=== PATIENT | female | born 1950 | race African-American/Black ===

== ENCOUNTER 2017-06-26 06:58 | Inpatient (IN) ==
[2017-06-26] MEDS ORDERED: SODIUM CHLORIDE 0.9% 3,350 ML IV ONE (07:40)
[2017-06-26 08:48] LABS: Albumin 2.9 G/DL (3.4-5.0); Bilirubin,Total 0.8 MG/DL (0.2-1.0); Calcium 9.3 MG/DL (8.5-10.1); Total Protein 7.1 G/DL (6.4-8.3)
[2017-06-26 08:52] LABS: Lactic Acid 2.1 MMOL/L (0.4-2.0)
[2017-06-26 09:06] LABS: Apearance,Urine CLOUDY (Clear); Bacteria,Urine Many /HPF (Few); Bilirubin,Urine Negative (Negative); Blood, Urine Moderate mg/dL (Negative); Glucose,Urine (UA) Negative (Negative); Hyaline Casts,Urine 24 /LPF (0-3); Ketones,Urine Negative (Negative); Mucus,Urine Occasional /LPF (Occasional); Nitrite,Urine Positive (Negative); Protein,Urine Negative; RBC,Urine 2 /HPF (0-4); Urine Color Yellow (Yellow); Urine Specific Gravity 1.014 (1.001-1.035); Urine Urobilinogen < 2.0 EU/DL (0.2-1.0); WBC,Urine 306 /HPF (0-6)
[2017-06-26] MEDS ORDERED: VANCOMYCIN 1,000 MG VIAL ONE (09:06)
[2017-06-26] MEDS ORDERED: PIPERACILLIN/TAZOBACTAM 3,375 MG VIAL IV ONE (09:06)
[2017-06-26] MEDS ORDERED: VANCOMYCIN INJ 1,750 MG in SODIUM CHLORIDE 0.9% 500 ML IV STA (09:14)
[2017-06-26] MEDS: PIPERACILLIN/TAZOBACTAM 3,375 MG in SODIUM CHLORIDE 0.9% 100 ML IV SCH ×2 (09:22→16:59)
[2017-06-26 09:32] LABS: Basophils # 0.1 10*3/uL (0.0-0.2); Basophils % 0.3 % (0.0-0.8); Eosinophils # 0.1 10*3/uL (0.0-0.87); Eosinophils % 0.5 % (0.00-10.9); Hematocrit 35.9 VOL% (35.7-47.0); Hemoglobin 11.6 GM/DL (12.0-16.0); Immature Granulocytes % 0.5 %; Immature Granulocytes Absolute 0.07 #; Lymphocytes # 2.2 10*3/uL (1.4-4.0); Lymphocytes % 14.8 % (21.3-54.2); Mean Corpuscular HGB Conc 32.3 GM/DL (32-36); Mean Corpuscular Hemoglobin 26 PG (27-34); Mean Corpuscular Volume 79.4 FL (87-102); Mean Platelet Volume 11.3 FL (9.6-12.0); Monocytes # 1.6 10*3/uL (0.11-0.8); Monocytes % 10.7 % (1.7-12.7); Neutrophils # 10.8 10*3/uL (1.4-7.4); Neutrophils % 73.2 % (38.7-73.9); Platelet Count 243 T/CUMM (130-400); Red Blood Count 4.52 MC/CUMM (3.8-5.5); Red Cell Distribution Width 17.2 % (9.3-17.3); White Blood Count 14.8 T/CUMM (4-12)
[2017-06-26] MEDS ORDERED: ONDANSETRON 4 MG/2 ML VIAL IV PRN (10:03)
[2017-06-26] MEDS ORDERED: LACTULOSE 20 GM/30 ML UDCUP PO PRN (10:03)
[2017-06-26] MEDS ORDERED: DOCUSATE SODIUM 100 MG CAPSULE PO PRN (10:03)
[2017-06-26] MEDS: SODIUM CHLORIDE 0.9% 1,000 ML IV SCH (14:52)
[2017-06-26] MEDS: ENOXAPARIN 40 MG/0.4 ML SYRINGE SUBCUT SCH (14:54)
[2017-06-26] MEDS ORDERED: CALCIUM CARBONATE CHEW 500 MG TABLET PO PRN (17:08)
[2017-06-26] MEDS ORDERED: ALUMINUM/MAGNES/SIMETH MAX STR 30 ML UDCUP PO PRN (17:08)
[2017-06-26] MEDS: KETOROLAC 10 MG TABLET PO PRN (18:39)
[2017-06-26] MEDS: SILVER SULFADIAZINE 1% CREAM 25 GM TUBE TOP SCH (18:40)
[2017-06-26] MEDS: VANCOMYCIN INJ 1,750 MG in SODIUM CHLORIDE 0.9% 500 ML IV SCH (20:43)
[2017-06-27] MEDS: KETOROLAC 10 MG TABLET PO PRN (01:12)
[2017-06-27] MEDS: PIPERACILLIN/TAZOBACTAM 3,375 MG in SODIUM CHLORIDE 0.9% 100 ML IV SCH ×3 (01:13→17:39)
[2017-06-27 05:11] LABS: Basophils % 0.4 % (0.0-0.8); Eosinophils # 0.2 10*3/uL (0.0-0.87); Eosinophils % 2.7 % (0.00-10.9); Hematocrit 31.2 VOL% (35.7-47.0); Hemoglobin 9.9 GM/DL (12.0-16.0); Immature Granulocytes % 0.4 %; Immature Granulocytes Absolute 0.03 #; Mean Corpuscular HGB Conc 31.7 GM/DL (32-36); Mean Corpuscular Hemoglobin 25 PG (27-34); Mean Corpuscular Volume 80.2 FL (87-102); Mean Platelet Volume 11.1 FL (9.6-12.0); Monocytes % 11.9 % (1.7-12.7); Neutrophils # 5.1 10*3/uL (1.4-7.4); Neutrophils % 60.6 % (38.7-73.9); Platelet Count 235 T/CUMM (130-400); Red Blood Count 3.89 MC/CUMM (3.8-5.5); Red Cell Distribution Width 17.4 % (9.3-17.3); White Blood Count 8.5 T/CUMM (4-12)
[2017-06-27 05:43] LABS: Calcium 8.5 MG/DL (8.5-10.1); Osmolality,Calculated 281.3 MOS/KG (273-304)
[2017-06-27] MEDS: VANCOMYCIN INJ 1,750 MG in SODIUM CHLORIDE 0.9% 500 ML IV SCH ×2 (09:13→20:31)
[2017-06-27] MEDS: SILVER SULFADIAZINE 1% CREAM 25 GM TUBE TOP SCH (09:39)
[2017-06-27] MEDS ORDERED: LORazepam 2 MG/1 ML VIAL IV ONE (14:28)
[2017-06-27] MEDS: SODIUM CHLORIDE 0.9% 1,000 ML IV SCH ×4 (15:32→18:13)
[2017-06-27] MEDS: ENOXAPARIN 40 MG/0.4 ML SYRINGE SUBCUT SCH ×2 (15:34→17:40)
[2017-06-28] MEDS: PIPERACILLIN/TAZOBACTAM 3,375 MG in SODIUM CHLORIDE 0.9% 100 ML IV SCH ×4 (02:53→23:56)
[2017-06-28 05:55] LABS: Basophils % 0.3 % (0.0-0.8); Eosinophils # 0.3 10*3/uL (0.0-0.87); Eosinophils % 3.1 % (0.00-10.9); Hematocrit 33.4 VOL% (35.7-47.0); Hemoglobin 10.5 GM/DL (12.0-16.0); Immature Granulocytes % 0.5 %; Immature Granulocytes Absolute 0.05 #; Lymphocytes # 1.7 10*3/uL (1.4-4.0); Lymphocytes % 17.2 % (21.3-54.2); Mean Corpuscular HGB Conc 31.4 GM/DL (32-36); Mean Corpuscular Hemoglobin 26 PG (27-34); Mean Corpuscular Volume 81.1 FL (87-102); Mean Platelet Volume 10.4 FL (9.6-12.0); Monocytes # 1.2 10*3/uL (0.11-0.8); Monocytes % 11.9 % (1.7-12.7); Neutrophils # 6.8 10*3/uL (1.4-7.4); Platelet Count 274 T/CUMM (130-400); Red Blood Count 4.12 MC/CUMM (3.8-5.5); Red Cell Distribution Width 17.6 % (9.3-17.3); White Blood Count 10.1 T/CUMM (4-12)
[2017-06-28 06:24] LABS: Calcium 9.6 MG/DL (8.5-10.1); Osmolality,Calculated 281.3 MOS/KG (273-304); Potassium 3.5 MMOL/L (3.5-5.1)
[2017-06-28 06:34] LABS: B-Type Natriuretic Peptide 27 PG/ML (2-100); Vitamin B12 803 PG/ML (211-911)
[2017-06-28] MEDS: SODIUM CHLORIDE 0.9% 1,000 ML IV SCH ×2 (08:55→11:42)
[2017-06-28] MEDS: KETOROLAC 10 MG TABLET PO PRN (09:04)
[2017-06-28] MEDS: ENOXAPARIN 40 MG/0.4 ML SYRINGE SUBCUT SCH (11:45)
[2017-06-28] MEDS: SILVER SULFADIAZINE 1% CREAM 25 GM TUBE TOP SCH (11:45)
[2017-06-28] MEDS: VANCOMYCIN INJ 1,750 MG in SODIUM CHLORIDE 0.9% 500 ML IV SCH (11:47)
[2017-06-28] MEDS ORDERED: NALOXONE SL SCH (13:00)
[2017-06-28] MEDS ORDERED: BUPRENORPHINE SL SCH (13:00)
[2017-06-28] MEDS: FUROSEMIDE 80 MG TABLET PO SCH (16:43)
[2017-06-28] MEDS: GABAPENTIN 400 MG CAPSULE PO SCH ×2 (16:44→20:48)
[2017-06-28] MEDS: NORTRIPTYLINE 25 MG CAPSULE PO SCH (20:48)
[2017-06-28] MEDS: ACETAMINOPHEN 325 MG TABLET PO PRN (23:57)
[2017-06-29 03:12] LABS: Basophils % 0.4 % (0.0-0.8); Eosinophils # 0.3 10*3/uL (0.0-0.87); Eosinophils % 3.3 % (0.00-10.9); Hemoglobin 9.3 GM/DL (12.0-16.0); Immature Granulocytes % 0.4 %; Immature Granulocytes Absolute 0.03 #; Lymphocytes # 1.7 10*3/uL (1.4-4.0); Lymphocytes % 21.1 % (21.3-54.2); Mean Corpuscular Hemoglobin 25 PG (27-34); Mean Corpuscular Volume 80.9 FL (87-102); Mean Platelet Volume 10.5 FL (9.6-12.0); Monocytes # 1.1 10*3/uL (0.11-0.8); Monocytes % 12.9 % (1.7-12.7); Neutrophils % 61.9 % (38.7-73.9); Platelet Count 282 T/CUMM (130-400); Red Blood Count 3.71 MC/CUMM (3.8-5.5); Red Cell Distribution Width 17.6 % (9.3-17.3); White Blood Count 8.1 T/CUMM (4-12)
[2017-06-29 03:48] LABS: Osmolality,Calculated 286.8 MOS/KG (273-304); Potassium 3.8 MMOL/L (3.5-5.1)
[2017-06-29] MEDS: ENOXAPARIN 40 MG/0.4 ML SYRINGE SUBCUT SCH ×2 (07:46→11:32)
[2017-06-29] MEDS: FUROSEMIDE 80 MG TABLET PO SCH (07:47)
[2017-06-29] MEDS: GABAPENTIN 400 MG CAPSULE PO SCH ×4 (07:47→20:46)
[2017-06-29] MEDS: KETOROLAC 10 MG TABLET PO PRN (07:48)
[2017-06-29] MEDS ORDERED: TRIAMTERENE/HCTZ 37.5-25 MG TABLET PO SCH (09:00)
[2017-06-29] MEDS ORDERED: HYDROmorphone 2 MG/1 ML VIAL IV PRN (11:05)
[2017-06-29] MEDS: PIPERACILLIN/TAZOBACTAM 3,375 MG in SODIUM CHLORIDE 0.9% 100 ML IV SCH ×2 (11:30→16:54)
[2017-06-29] MEDS: SILVER SULFADIAZINE 1% CREAM 25 GM TUBE TOP SCH (11:32)
[2017-06-29] MEDS: BUPRENORPHINE SL SCH (11:33)
[2017-06-29] MEDS: NALOXONE SL SCH (11:33)
[2017-06-29] MEDS: SPIRONOLACTONE 25 MG TABLET PO SCH (11:48)
[2017-06-29] MEDS: FUROSEMIDE 40 MG/4 ML VIAL IV SCH (16:44)
[2017-06-29] MEDS: NORTRIPTYLINE 25 MG CAPSULE PO SCH (20:45)
[2017-06-30] MEDS: PIPERACILLIN/TAZOBACTAM 3,375 MG in SODIUM CHLORIDE 0.9% 100 ML IV SCH ×3 (00:26→16:20)
[2017-06-30] MEDS: ACETAMINOPHEN 325 MG TABLET PO PRN ×2 (04:41→23:43)
[2017-06-30] MEDS: FUROSEMIDE 40 MG/4 ML VIAL IV SCH ×2 (09:03→16:20)
[2017-06-30] MEDS: GABAPENTIN 400 MG CAPSULE PO SCH ×3 (09:04→20:48)
[2017-06-30] MEDS: ENOXAPARIN 40 MG/0.4 ML SYRINGE SUBCUT SCH ×2 (09:04→12:08)
[2017-06-30] MEDS: SPIRONOLACTONE 25 MG TABLET PO SCH (09:05)
[2017-06-30] MEDS: BUPRENORPHINE SL SCH (12:17)
[2017-06-30] MEDS: NALOXONE SL SCH (12:17)
[2017-06-30] MEDS: SILVER SULFADIAZINE 1% CREAM 25 GM TUBE TOP SCH (12:18)
[2017-06-30] MEDS: HEPARIN DRIP 25,000 UNITS/500 ML PREMIX IV SCH (17:43)
[2017-06-30] MEDS ORDERED: HEPARIN 5,000 UNIT/1 ML VIAL IV ONE (17:50)
[2017-06-30 18:08] LABS: PT Patient Result 10.4 SECS; Partial Thromboplastin Time 28.2 SECS (0-40)
[2017-06-30] MEDS: NORTRIPTYLINE 25 MG CAPSULE PO SCH (20:48)
[2017-07-01] MEDS ORDERED: HEPARIN 5,000 UNIT/1 ML VIAL IV ONE (01:24)
[2017-07-01] MEDS: PIPERACILLIN/TAZOBACTAM 3,375 MG in SODIUM CHLORIDE 0.9% 100 ML IV SCH ×4 (01:27→11:59)
[2017-07-01 04:58] LABS: Basophils # 0.1 10*3/uL (0.0-0.2); Basophils % 0.6 % (0.0-0.8); Eosinophils # 0.4 10*3/uL (0.0-0.87); Eosinophils % 4.2 % (0.00-10.9); Hematocrit 34.4 VOL% (35.7-47.0); Immature Granulocytes % 0.7 %; Immature Granulocytes Absolute 0.06 #; Lymphocytes # 2.3 10*3/uL (1.4-4.0); Lymphocytes % 26.4 % (21.3-54.2); Mean Corpuscular Hemoglobin 25 PG (27-34); Mean Corpuscular Volume 78.5 FL (87-102); Mean Platelet Volume 9.7 FL (9.6-12.0); Monocytes # 1.1 10*3/uL (0.11-0.8); Monocytes % 12.3 % (1.7-12.7); Neutrophils % 55.8 % (38.7-73.9); Platelet Count 354 T/CUMM (130-400); Red Blood Count 4.38 MC/CUMM (3.8-5.5); Red Cell Distribution Width 17.3 % (9.3-17.3); White Blood Count 8.9 T/CUMM (4-12)
[2017-07-01] MEDS: HEPARIN DRIP 25,000 UNITS/500 ML PREMIX IV SCH ×2 (05:48→15:54)
[2017-07-01 06:04] LABS: Alanine Aminotransferase 9 U/L (13-56); Albumin 2.4 G/DL (3.4-5.0); Alkaline Phosphatase 121 U/L (45-117); Aspartate Amino Transferase 13 U/L (0-37); Bilirubin,Total < 0.39 MG/DL (0.2-1.0); Blood Urea Nitrogen 19 MG/DL (7-18); Calcium 8.8 MG/DL (8.5-10.1); Glucose 90 MG/DL (74-106); Magnesium 2.2 MG/DL (1.8-2.4); Osmolality,Calculated 284.1 MOS/KG (273-304); Potassium 3.6 MMOL/L (3.5-5.1); Sodium 142 MMOL/L (136-145); Total Protein 5.8 G/DL (6.4-8.3)
[2017-07-01] MEDS: GABAPENTIN 400 MG CAPSULE PO SCH ×6 (09:22→20:51)
[2017-07-01] MEDS: NALOXONE SL SCH (14:12)
[2017-07-01] MEDS: BUPRENORPHINE SL SCH (14:12)
[2017-07-01] MEDS: SILVER SULFADIAZINE 1% CREAM 25 GM TUBE TOP SCH (14:50)
[2017-07-01] MEDS: LINEZOLID 600 MG TABLET PO SCH ×2 (20:47→20:52)
[2017-07-01] MEDS: SPIRONOLACTONE 25 MG TABLET PO SCH (23:06)
[2017-07-01] MEDS: FUROSEMIDE 40 MG/4 ML VIAL IV SCH (23:06)
[2017-07-02 01:42] LABS: Calcium 8.7 MG/DL (8.5-10.1); Osmolality,Calculated 281.3 MOS/KG (273-304); Potassium 3.4 MMOL/L (3.5-5.1)
[2017-07-02] MEDS: HEPARIN DRIP 25,000 UNITS/500 ML PREMIX IV SCH (08:10)
[2017-07-02] MEDS: SILVER SULFADIAZINE 1% CREAM 25 GM TUBE TOP SCH (10:41)
[2017-07-02] MEDS: GABAPENTIN 400 MG CAPSULE PO SCH ×3 (10:41→20:40)
[2017-07-02] MEDS: LINEZOLID 600 MG TABLET PO SCH ×2 (10:41→20:40)
[2017-07-02] MEDS: BUPRENORPHINE SL SCH (11:15)
[2017-07-02] MEDS: NALOXONE SL SCH (11:15)
[2017-07-02] MEDS: POTASSIUM CHLORIDE 20 MEQ TABLET PO SCH ×3 (11:56→20:39)
[2017-07-02] MEDS: RIVAROXABAN 15 MG TABLET PO SCH (16:09)
[2017-07-03 06:12] LABS: Basophils # 0.1 10*3/uL (0.0-0.2); Basophils % 0.6 % (0.0-0.8); Eosinophils # 0.3 10*3/uL (0.0-0.87); Eosinophils % 2.8 % (0.00-10.9); Hematocrit 31.9 VOL% (35.7-47.0); Hemoglobin 10.3 GM/DL (12.0-16.0); Immature Granulocytes % 0.6 %; Immature Granulocytes Absolute 0.06 #; Lymphocytes # 1.6 10*3/uL (1.4-4.0); Lymphocytes % 16.8 % (21.3-54.2); Mean Corpuscular HGB Conc 32.3 GM/DL (32-36); Mean Corpuscular Hemoglobin 25 PG (27-34); Mean Corpuscular Volume 77.4 FL (87-102); Monocytes # 0.9 10*3/uL (0.11-0.8); Monocytes % 9.5 % (1.7-12.7); Neutrophils # 6.8 10*3/uL (1.4-7.4); Neutrophils % 69.7 % (38.7-73.9); Platelet Count 384 T/CUMM (130-400); Red Blood Count 4.12 MC/CUMM (3.8-5.5); Red Cell Distribution Width 17.4 % (9.3-17.3); White Blood Count 9.7 T/CUMM (4-12)
[2017-07-03 06:49] LABS: Calcium 9.4 MG/DL (8.5-10.1); Osmolality,Calculated 279.5 MOS/KG (273-304); Potassium 4.1 MMOL/L (3.5-5.1)
[2017-07-03] MEDS: LINEZOLID 600 MG TABLET PO SCH (09:20)
[2017-07-03] MEDS: GABAPENTIN 400 MG CAPSULE PO SCH (09:20)
[2017-07-03] MEDS: RIVAROXABAN 15 MG TABLET PO SCH (09:20)
[2017-07-03] MEDS: SILVER SULFADIAZINE 1% CREAM 25 GM TUBE TOP SCH (12:26)
[2017-07-03] MEDS: NALOXONE SL SCH (12:26)
[2017-07-03] MEDS: BUPRENORPHINE SL SCH (12:26)
[2017-07-03 12:51] VITALS: BP 131/69
== END 2017-07-03 16:30 | disposition swing bed (61) | DRG 872 ==
LOC: EDUNIT# → EDBD → N.ED 06:58 → N.EDINP 08:51 → SUATTDRO 08:51 → N.TELEN 13:15
PROVIDERS: ADMIT Internal Medicine; ATTEND Internal Medicine

== ENCOUNTER 2019-06-16 23:11 | Inpatient (IN) ==
[2019-06-17 01:21] LABS: ABG Base Excess 5.1 MMOL/L (-2.5-2.5); ABG Oxygen Saturation 95.8 % (95-100); ABG PO2 86.2 MM HG (80-95); ABG TCO2 32.3 MMOL/L (23-27); Allen Test Positive
[2019-06-17 01:25] LABS: ABG PCO2 79.9 MM HG (35-48)
[2019-06-17] MEDS ORDERED: MORPHINE 4 MG/1 ML VIAL IV PRN (01:26)
[2019-06-17] MEDS ORDERED: ONDANSETRON 4 MG/2 ML VIAL IV PRN (01:26)
[2019-06-17] MEDS ORDERED: ENOXAPARIN 30 MG/0.3 ML SYRINGE SUBCUT SCH (01:30)
[2019-06-17] MEDS ORDERED: VANCOMYCIN INJ 1,000 MG in SODIUM CHLORIDE 0.9% 250 ML IV ONE (01:35)
[2019-06-17] MEDS: SODIUM CHLORIDE 0.9% 1,000 ML IV SCH ×2 (02:01→23:00)
[2019-06-17] MEDS: ALBUTEROL/IPRATROPIUM 3 ML NEB RESP TX SCH ×5 (02:35→19:33)
[2019-06-17 02:59] LABS: Basophils # 0.1 10*3/uL (0.0-0.2); Basophils % 0.5 % (0.0-0.8); Eosinophils # 0.6 10*3/uL (0.0-0.87); Eosinophils % 6.3 % (0.00-10.9); Hematocrit 35.3 VOL% (35.7-47.0); Hemoglobin 9.9 GM/DL (12.0-16.0); Immature Granulocytes % 0.4 %; Immature Granulocytes Absolute 0.04 #; Lymphocytes # 2.4 10*3/uL (1.4-4.0); Lymphocytes % 26.1 % (21.3-54.2); Mean Corpuscular Volume 90.1 FL (87-102); Mean Platelet Volume 10.6 FL (9.6-12.0); Monocytes % 9.9 % (1.7-12.7); Neutrophils % 56.8 % (38.7-73.9); Platelet Count 288 T/CUMM (130-400); Red Blood Count 3.92 MC/CUMM (3.8-5.5); Red Cell Distribution Width 14.9 % (9.3-17.3); White Blood Count 9.3 T/CUMM (4-12)
[2019-06-17 03:17] LABS: ABG Base Excess 5.4 MMOL/L (-2.5-2.5); ABG HCO3 29.2 MMOL/L (20-26); ABG Oxygen Saturation 94.7 % (95-100); ABG PH 7.251 (7.35-7.45); ABG TCO2 32.6 MMOL/L (23-27)
[2019-06-17 03:18] LABS: Alanine Aminotransferase 12 U/L (13-56); Albumin 2.5 G/DL (3.4-5.0); Alkaline Phosphatase 103 U/L (45-117); Aspartate Amino Transferase 15 U/L (0-37); Bilirubin,Total < 0.39 MG/DL (0.2-1.0); Blood Urea Nitrogen 16 MG/DL (7-18); Estimated Glom Filtration Rate 92 ML/MIN; Glucose 98 MG/DL (74-106); Osmolality,Calculated 288.7 MOS/KG (273-304); Total Protein 6.6 G/DL (6.4-8.3)
[2019-06-17 03:19] LABS: ABG PCO2 80.3 MM HG (35-48)
[2019-06-17 03:20] LABS: Apearance,Urine CLEAR (Clear); Bilirubin,Urine Negative (Negative); Blood, Urine Small mg/dL (Negative); Glucose,Urine (UA) Negative (Negative); Hyaline Casts,Urine 1 /LPF (0-3); Ketones,Urine Negative (Negative); Mucus,Urine Occasional /LPF (Occasional); Nitrite,Urine Negative (Negative); Protein,Urine Negative; RBC,Urine 2 /HPF (0-4); Squamous Epithelial Cell,Urine Occasional /HPF (0-10); Urine Color Yellow (Yellow); Urine Specific Gravity 1.014 (1.001-1.035); Urine Urobilinogen < 2.0 EU/DL (0.2-1.0); WBC,Urine 2 /HPF (0-6)
[2019-06-17 03:25] LABS: Risk Ratio 3.09; VLDL CHOLESTEROL 17.4 MG/DL
[2019-06-17 04:28] LABS: ABG Base Excess 4.9 MMOL/L (-2.5-2.5); ABG HCO3 28.7 MMOL/L (20-26); ABG Oxygen Saturation 92.8 % (95-100); ABG PH 7.242 (7.35-7.45); ABG PO2 72.3 MM HG (80-95); ABG TCO2 32.3 MMOL/L (23-27); Allen Test Positive; Pt O2 Delivery Device BIPAP
[2019-06-17 04:33] LABS: ABG PCO2 81.1 MM HG (35-48)
[2019-06-17] MEDS: PIPERACILLIN/TAZOBACTAM 3,375 MG in SODIUM CHLORIDE 0.9% 100 ML IV SCH ×3 (04:50→18:34)
[2019-06-17] MEDS ORDERED: NALOXONE 0.4 MG/ML VIAL ONE (05:51)
[2019-06-17] MEDS ORDERED: NALOXONE 0.4 MG/ML VIAL IV ONE (05:57)
[2019-06-17 06:20] LABS: INR 1.7; PT Patient Result 18.3 SECS (9.6-12.2); Partial Thromboplastin Time 28.9 SECS (20.8-36.0)
[2019-06-17 06:22] LABS: ABG Base Excess 5.8 MMOL/L (-2.5-2.5); ABG HCO3 29.6 MMOL/L (20-26); ABG Oxygen Saturation 90.5 % (95-100); ABG PH 7.259 (7.35-7.45); ABG PO2 63.9 MM HG (80-95); ABG TCO2 32.9 MMOL/L (23-27); Allen Test Positive; Pt O2 Delivery Device Other
[2019-06-17 06:23] LABS: ABG PCO2 79.4 MM HG (35-48)
[2019-06-17] MEDS ORDERED: VECURONIUM 10 MG VIAL IV ONE ×3 (06:30→06:36)
[2019-06-17] MEDS ORDERED: ETOMIDATE 20 MG/10 ML VIAL IV ONE ×3 (06:30→07:28)
[2019-06-17 07:25] LABS: ABG Base Excess 7.4 MMOL/L (-2.5-2.5); ABG HCO3 31.2 MMOL/L (20-26); ABG Oxygen Saturation 99.7 % (95-100); ABG PCO2 55.2 MM HG (35-48); ABG PH 7.395 (7.35-7.45); ABG TCO2 30.7 MMOL/L (23-27); Allen Test Positive; Pt O2 Delivery Device Ventilator
[2019-06-17] MEDS ORDERED: FUROSEMIDE 40 MG/4 ML VIAL IV SCH (09:00)
[2019-06-17] MEDS ORDERED: CLOTRIMAZOLE/BETAMETHASONE LOTION 30 ML BOTTLE TOP SCH (09:00)
[2019-06-17] MEDS: RIVAROXABAN 15 MG TABLET PO SCH ×2 (10:52→17:00)
[2019-06-17] MEDS: GABAPENTIN 400 MG CAPSULE PO SCH ×3 (10:52→22:00)
[2019-06-17] MEDS ORDERED: MAGNESIUM SULF RIDER 2 GM in PREMIX 1 EACH IV ONE (11:00)
[2019-06-17] MEDS: MIDAZOLAM 100 MG in SODIUM CHLORIDE 0.9% 80 ML IV PRN (11:08)
[2019-06-17] MEDS: fentaNYL INJ 1,250 MCG in SODIUM CHLORIDE 0.9% 225 ML IV PRN ×2 (11:08→19:20)
[2019-06-17] MEDS: INSULIN LISPRO 100 UNIT/ML SUBCUT SCH ×2 (12:49→18:13)
[2019-06-17] MEDS ORDERED: GLUCAGON 1 MG VIAL IM PRN (12:50)
[2019-06-17] MEDS ORDERED: SODIUM CHLORIDE 0.9% 500 ML IV ONE ×2 (13:54→14:38)
[2019-06-17] MEDS ORDERED: NOREPINEPHRINE 4 MG/4 ML VIAL IV ONE (14:26)
[2019-06-17] MEDS: NOREPINEPHRINE 8 MG in SODIUM CHLORIDE 0.9% 242 ML IV PRN (14:50)
[2019-06-17] MEDS: CLOTRIMAZOLE/BETAMETHASONE CREAM 15 GM TUBE TOP SCH ×2 (16:00→22:00)
[2019-06-18] MEDS: ALBUTEROL/IPRATROPIUM 3 ML NEB RESP TX SCH ×7 (00:07→23:10)
[2019-06-18] MEDS: INSULIN LISPRO 100 UNIT/ML SUBCUT SCH ×4 (02:03→18:18)
[2019-06-18] MEDS: PIPERACILLIN/TAZOBACTAM 3,375 MG in SODIUM CHLORIDE 0.9% 100 ML IV SCH ×3 (03:15→18:18)
[2019-06-18] MEDS: SODIUM CHLORIDE 0.9% 1,000 ML IV SCH ×3 (03:15→18:10)
[2019-06-18 04:35] LABS: ABG Base Excess 5.4 MMOL/L (-2.5-2.5); ABG HCO3 29.3 MMOL/L (20-26); ABG Oxygen Saturation 98.5 % (95-100); ABG PCO2 37.7 MM HG (35-48); ABG PH 7.493 (7.35-7.45); ABG PO2 96.1 MM HG (80-95); ABG TCO2 26.3 MMOL/L (23-27)
[2019-06-18 06:52] LABS: Basophils # 0.1 10*3/uL (0.0-0.2); Basophils % 0.4 % (0.0-0.8); Eosinophils # 0.6 10*3/uL (0.0-0.87); Eosinophils % 4.5 % (0.00-10.9); Hematocrit 32.6 VOL% (35.7-47.0); Immature Granulocytes % 0.6 %; Immature Granulocytes Absolute 0.07 #; Lymphocytes # 1.4 10*3/uL (1.4-4.0); Lymphocytes % 11.3 % (21.3-54.2); Mean Corpuscular HGB Conc 30.7 GM/DL (32-36); Mean Corpuscular Volume 83.2 FL (87-102); Mean Platelet Volume 10.8 FL (9.6-12.0); Monocytes % 12.4 % (1.7-12.7); Neutrophils % 70.8 % (38.7-73.9); Platelet Count 312 T/CUMM (130-400); Red Blood Count 3.92 MC/CUMM (3.8-5.5); Red Cell Distribution Width 14.6 % (9.3-17.3); White Blood Count 12.4 T/CUMM (4-12)
[2019-06-18 07:11] LABS: Albumin 2.4 G/DL (3.4-5.0); Bilirubin,Total 0.9 MG/DL (0.2-1.0); Calcium 8.6 MG/DL (8.5-10.1); Osmolality,Calculated 291.6 MOS/KG (273-304); Total Protein 6.5 G/DL (6.4-8.3)
[2019-06-18] MEDS: RIVAROXABAN 15 MG TABLET PO SCH ×2 (09:00→16:59)
[2019-06-18] MEDS: CLOTRIMAZOLE/BETAMETHASONE CREAM 15 GM TUBE TOP SCH ×2 (09:00→21:33)
[2019-06-18] MEDS: methylPREDNISolone SOD SUC 40 MG/1 ML VIAL IV SCH ×3 (09:00→23:36)
[2019-06-18] MEDS: RIFAXIMIN 550 MG TABLET PO SCH ×2 (09:01→21:33)
[2019-06-18] MEDS: LEVOFLOXACIN INJ 500 MG in PREMIX 1 EACH IV SCH (09:01)
[2019-06-18] MEDS: GABAPENTIN 400 MG CAPSULE PO SCH ×3 (09:01→21:33)
[2019-06-18] MEDS: LANSOPRAZOLE ODT 30 MG TABLET PER TUBE SCH (09:08)
[2019-06-18] MEDS: fentaNYL INJ 1,250 MCG in SODIUM CHLORIDE 0.9% 225 ML IV PRN ×2 (09:17→21:57)
[2019-06-18] MEDS ORDERED: MAGNESIUM SULF RIDER 4 GM in PREMIX 1 EACH IV ONE (09:30)
[2019-06-18] MEDS: SERTRALINE 25 MG TABLET PER TUBE SCH (10:36)
[2019-06-18] MEDS: POTASSIUM CHLORIDE 20 MEQ/15 ML UDCUP PER TUBE SCH ×3 (10:36→17:00)
[2019-06-18] MEDS: VANCOMYCIN INJ 1,750 MG in SODIUM CHLORIDE 0.9% 500 ML IV SCH ×2 (11:45→23:40)
[2019-06-18] MEDS ORDERED: DEXTROSE 50% 25 GM/50 ML VIAL IV PRN (13:14)
[2019-06-18] MEDS: NOREPINEPHRINE 8 MG in SODIUM CHLORIDE 0.9% 242 ML IV PRN (16:10)
[2019-06-19] MEDS: INSULIN LISPRO 100 UNIT/ML SUBCUT SCH ×4 (00:11→19:16)
[2019-06-19] MEDS: ALBUTEROL/IPRATROPIUM 3 ML NEB RESP TX SCH ×6 (03:00→23:02)
[2019-06-19] MEDS: PIPERACILLIN/TAZOBACTAM 3,375 MG in SODIUM CHLORIDE 0.9% 100 ML IV SCH ×3 (03:02→19:16)
[2019-06-19 04:28] LABS: ABG Base Excess 0.1 MMOL/L (-2.5-2.5); ABG HCO3 24.4 MMOL/L (20-26); ABG Oxygen Saturation 92.2 % (95-100); ABG PCO2 43.5 MM HG (35-48); ABG PH 7.376 (7.35-7.45); ABG PO2 63.3 MM HG (80-95); ABG TCO2 22.9 MMOL/L (23-27); Allen Test Positive; Pt O2 Delivery Device Ventilator
[2019-06-19] MEDS: SODIUM CHLORIDE 0.9% 1,000 ML IV SCH (05:20)
[2019-06-19] MEDS: MIDAZOLAM 100 MG in SODIUM CHLORIDE 0.9% 80 ML IV PRN (06:11)
[2019-06-19] MEDS: fentaNYL INJ 1,250 MCG in SODIUM CHLORIDE 0.9% 225 ML IV PRN ×2 (06:38→17:03)
[2019-06-19 07:49] LABS: Basophils % 0.2 % (0.0-0.8); Hematocrit 31.5 VOL% (35.7-47.0); Hemoglobin 9.5 GM/DL (12.0-16.0); Immature Granulocytes Absolute 0.19 #; Lymphocytes # 0.9 10*3/uL (1.4-4.0); Lymphocytes % 4.5 % (21.3-54.2); Mean Corpuscular HGB Conc 30.2 GM/DL (32-36); Mean Corpuscular Volume 82.9 FL (87-102); Mean Platelet Volume 12.2 FL (9.6-12.0); Monocytes % 8.1 % (1.7-12.7); Neutrophils % 86.2 % (38.7-73.9); Platelet Count 258 T/CUMM (130-400); Red Cell Distribution Width 15.2 % (9.3-17.3); White Blood Count 19.5 T/CUMM (4-12)
[2019-06-19 08:11] LABS: Band Neutrophils 2 % (0-10); Eosinophils 2 % (0-10); Hypochromasia 1+; Lymphocytes 5 % (20-55); Segmented Neutrophils 81 % (50-85); Total Cells Counted 100
[2019-06-19 08:12] LABS: Calcium 8.9 MG/DL (8.5-10.1); Microcytosis Slight; Osmolality,Calculated 298.3 MOS/KG (273-304); Platelet Estimate Normal; Polychromasia Slight
[2019-06-19 08:20] LABS: Prealbumin 10.3 MG/DL (20-40)
[2019-06-19] MEDS ORDERED: FUROSEMIDE 40 MG/4 ML VIAL IV ONE (09:09)
[2019-06-19] MEDS: LEVOFLOXACIN INJ 500 MG in PREMIX 1 EACH IV SCH (09:27)
[2019-06-19] MEDS: RIVAROXABAN 15 MG TABLET PO SCH ×2 (09:28→17:05)
[2019-06-19] MEDS: RIFAXIMIN 550 MG TABLET PO SCH ×2 (09:28→22:39)
[2019-06-19] MEDS: SERTRALINE 25 MG TABLET PER TUBE SCH (09:28)
[2019-06-19] MEDS: GABAPENTIN 400 MG CAPSULE PO SCH ×3 (09:28→22:39)
[2019-06-19] MEDS: LANSOPRAZOLE ODT 30 MG TABLET PER TUBE SCH (09:29)
[2019-06-19] MEDS: methylPREDNISolone SOD SUC 40 MG/1 ML VIAL IV SCH ×3 (09:32→23:50)
[2019-06-19] MEDS: CLOTRIMAZOLE/BETAMETHASONE CREAM 15 GM TUBE TOP SCH ×2 (09:34→22:39)
[2019-06-19] MEDS ORDERED: POTASSIUM PHOSPHATE 30 MMOL in SODIUM CHLORIDE 0.9% 250 ML IV ONE (11:00)
[2019-06-19] MEDS: VANCOMYCIN INJ 1,750 MG in SODIUM CHLORIDE 0.9% 500 ML IV SCH (11:54)
[2019-06-19 13:23] LABS: ABG Base Excess -0.2 MMOL/L (-2.5-2.5); ABG HCO3 24.2 MMOL/L (20-26); ABG Oxygen Saturation 95.1 % (95-100); ABG PCO2 43.5 MM HG (35-48); ABG TCO2 23.1 MMOL/L (23-27); Pt O2 Delivery Device Ventilator
[2019-06-19] MEDS: NOREPINEPHRINE 8 MG in SODIUM CHLORIDE 0.9% 242 ML IV PRN (17:56)
[2019-06-20] MEDS: VANCOMYCIN INJ 1,750 MG in SODIUM CHLORIDE 0.9% 500 ML IV SCH (00:10)
[2019-06-20] MEDS: INSULIN LISPRO 100 UNIT/ML SUBCUT SCH ×4 (00:24→18:16)
[2019-06-20] MEDS: PIPERACILLIN/TAZOBACTAM 3,375 MG in SODIUM CHLORIDE 0.9% 100 ML IV SCH ×3 (02:42→18:28)
[2019-06-20] MEDS: ALBUTEROL/IPRATROPIUM 3 ML NEB RESP TX SCH ×6 (03:01→23:05)
[2019-06-20 03:10] LABS: ABG Base Excess 0.4 MMOL/L (-2.5-2.5); ABG Oxygen Saturation 94.3 % (95-100); ABG PCO2 61.2 MM HG (35-48); ABG PH 7.279 (7.35-7.45); ABG PO2 74.6 MM HG (80-95); ABG TCO2 29.9 MMOL/L (23-27); Allen Test Positive; Pt O2 Delivery Device Ventilator
[2019-06-20 03:52] LABS: Calcium 8.9 MG/DL (8.5-10.1); Osmolality,Calculated 297.6 MOS/KG (273-304)
[2019-06-20 06:09] LABS: Basophils % 0.2 % (0.0-0.8); Hematocrit 31.2 VOL% (35.7-47.0); Hemoglobin 9.3 GM/DL (12.0-16.0); Immature Granulocytes % 2.1 %; Immature Granulocytes Absolute 0.46 #; Lymphocytes # 0.9 10*3/uL (1.4-4.0); Lymphocytes % 4.1 % (21.3-54.2); Mean Corpuscular HGB Conc 29.8 GM/DL (32-36); Mean Corpuscular Volume 84.6 FL (87-102); Mean Platelet Volume 11.4 FL (9.6-12.0); Monocytes % 5.5 % (1.7-12.7); NRBC # 0.02 10*3/uL; Neutrophils % 88.1 % (38.7-73.9); Platelet Count 334 T/CUMM (130-400); Red Blood Count 3.69 MC/CUMM (3.8-5.5); Red Cell Distribution Width 15.7 % (9.3-17.3); White Blood Count 21.5 T/CUMM (4-12)
[2019-06-20 06:31] LABS: Lymphocytes 5 % (20-55); Segmented Neutrophils 93 % (50-85); Total Cells Counted 100
[2019-06-20 06:32] LABS: Platelet Estimate Normal; Polychromasia Few; Smudge Cells Few
[2019-06-20] MEDS: LANSOPRAZOLE ODT 30 MG TABLET PER TUBE SCH (09:35)
[2019-06-20] MEDS: methylPREDNISolone SOD SUC 40 MG/1 ML VIAL IV SCH ×3 (09:35→23:59)
[2019-06-20] MEDS: RIVAROXABAN 15 MG TABLET PO SCH ×2 (09:35→18:28)
[2019-06-20] MEDS: GABAPENTIN 400 MG CAPSULE PO SCH ×3 (09:35→20:35)
[2019-06-20] MEDS: LEVOFLOXACIN INJ 500 MG in PREMIX 1 EACH IV SCH (09:35)
[2019-06-20] MEDS: RIFAXIMIN 550 MG TABLET PO SCH ×2 (09:36→20:35)
[2019-06-20] MEDS: CLOTRIMAZOLE/BETAMETHASONE CREAM 15 GM TUBE TOP SCH ×2 (09:36→21:23)
[2019-06-20] MEDS: SERTRALINE 25 MG TABLET PER TUBE SCH (09:36)
[2019-06-20] MEDS: fentaNYL INJ 1,250 MCG in SODIUM CHLORIDE 0.9% 225 ML IV PRN (18:54)
[2019-06-20] MEDS ORDERED: ACETAMINOPHEN 325 MG TABLET PO PRN (23:48)
[2019-06-21] MEDS: INSULIN LISPRO 100 UNIT/ML SUBCUT SCH ×4 (00:05→18:26)
[2019-06-21] MEDS: MEROPENEM 500 MG in SODIUM CHLORIDE 0.9% 100 ML IV SCH ×4 (00:30→18:26)
[2019-06-21] MEDS: ALBUTEROL/IPRATROPIUM 3 ML NEB RESP TX SCH ×6 (02:53→22:54)
[2019-06-21 03:13] LABS: ABG Base Excess 3.2 MMOL/L (-2.5-2.5); ABG HCO3 30.7 MMOL/L (20-26); ABG Oxygen Saturation 85.6 % (95-100); ABG PCO2 63.7 MM HG (35-48); ABG PH 7.301 (7.35-7.45); ABG PO2 53.5 MM HG (80-95); ABG TCO2 32.7 MMOL/L (23-27); Allen Test Positive; Pt O2 Delivery Device Ventilator
[2019-06-21] MEDS: fentaNYL INJ 1,250 MCG in SODIUM CHLORIDE 0.9% 225 ML IV PRN ×3 (04:58→23:43)
[2019-06-21 05:19] LABS: Basophils % 0.2 % (0.0-0.8); Hematocrit 30.5 VOL% (35.7-47.0); Hemoglobin 9.1 GM/DL (12.0-16.0); Immature Granulocytes % 2.1 %; Immature Granulocytes Absolute 0.45 #; Lymphocytes # 0.9 10*3/uL (1.4-4.0); Lymphocytes % 4.1 % (21.3-54.2); Mean Corpuscular HGB Conc 29.8 GM/DL (32-36); Mean Corpuscular Volume 84.7 FL (87-102); Mean Platelet Volume 11.3 FL (9.6-12.0); Monocytes % 8.4 % (1.7-12.7); NRBC # 0.02 10*3/uL; Neutrophils % 85.2 % (38.7-73.9); Platelet Count 332 T/CUMM (130-400); Red Cell Distribution Width 15.9 % (9.3-17.3)
[2019-06-21 05:39] LABS: Calcium 9.1 MG/DL (8.5-10.1)
[2019-06-21 05:46] LABS: Lymphocytes 6 % (20-55); Segmented Neutrophils 94 % (50-85); Total Cells Counted 100
[2019-06-21 05:47] LABS: Platelet Estimate Normal; Polychromasia Slight
[2019-06-21] MEDS: LEVOFLOXACIN INJ 500 MG in PREMIX 1 EACH IV SCH (09:00)
[2019-06-21] MEDS: SERTRALINE 25 MG TABLET PER TUBE SCH (09:01)
[2019-06-21] MEDS: methylPREDNISolone SOD SUC 40 MG/1 ML VIAL IV SCH ×2 (09:01→15:29)
[2019-06-21] MEDS: LANSOPRAZOLE ODT 30 MG TABLET PER TUBE SCH (09:01)
[2019-06-21] MEDS: RIFAXIMIN 550 MG TABLET PO SCH ×2 (09:01→21:38)
[2019-06-21] MEDS: GABAPENTIN 400 MG CAPSULE PO SCH ×3 (09:02→21:38)
[2019-06-21] MEDS: CLOTRIMAZOLE/BETAMETHASONE CREAM 15 GM TUBE TOP SCH ×2 (09:02→21:38)
[2019-06-21] MEDS: RIVAROXABAN 15 MG TABLET PO SCH ×2 (09:02→18:26)
[2019-06-21] MEDS: VANCOMYCIN INJ 1,750 MG in SODIUM CHLORIDE 0.9% 500 ML IV SCH (12:36)
[2019-06-21] MEDS: NOREPINEPHRINE 8 MG in SODIUM CHLORIDE 0.9% 242 ML IV PRN (15:35)
[2019-06-22] MEDS: methylPREDNISolone SOD SUC 40 MG/1 ML VIAL IV SCH ×3 (00:05→14:32)
[2019-06-22] MEDS: MEROPENEM 500 MG in SODIUM CHLORIDE 0.9% 100 ML IV SCH ×4 (00:28→17:13)
[2019-06-22] MEDS: INSULIN LISPRO 100 UNIT/ML SUBCUT SCH ×5 (00:28→18:18)
[2019-06-22] MEDS: ALBUTEROL/IPRATROPIUM 3 ML NEB RESP TX SCH ×6 (02:30→23:22)
[2019-06-22 06:56] LABS: Calcium 8.9 MG/DL (8.5-10.1); Osmolality,Calculated 294.1 MOS/KG (273-304)
[2019-06-22 07:04] LABS: Prealbumin 13.1 MG/DL (20-40)
[2019-06-22] MEDS: RIVAROXABAN 15 MG TABLET PO SCH ×2 (08:59→16:02)
[2019-06-22] MEDS: RIFAXIMIN 550 MG TABLET PO SCH ×2 (08:59→21:36)
[2019-06-22] MEDS: SERTRALINE 25 MG TABLET PER TUBE SCH (09:00)
[2019-06-22] MEDS: GABAPENTIN 400 MG CAPSULE PO SCH ×3 (09:00→21:36)
[2019-06-22] MEDS: CLOTRIMAZOLE/BETAMETHASONE CREAM 15 GM TUBE TOP SCH ×2 (09:01→21:37)
[2019-06-22] MEDS: LANSOPRAZOLE ODT 30 MG TABLET PER TUBE SCH (09:01)
[2019-06-22] MEDS: fentaNYL INJ 1,250 MCG in SODIUM CHLORIDE 0.9% 225 ML IV PRN ×2 (13:34→19:12)
[2019-06-23] MEDS: INSULIN LISPRO 100 UNIT/ML SUBCUT SCH ×4 (00:31→17:52)
[2019-06-23] MEDS: MEROPENEM 500 MG in SODIUM CHLORIDE 0.9% 100 ML IV SCH ×4 (00:32→17:13)
[2019-06-23] MEDS: methylPREDNISolone SOD SUC 40 MG/1 ML VIAL IV SCH ×4 (00:32→22:53)
[2019-06-23] MEDS: fentaNYL INJ 1,250 MCG in SODIUM CHLORIDE 0.9% 225 ML IV PRN ×5 (00:53→23:11)
[2019-06-23] MEDS: ALBUTEROL/IPRATROPIUM 3 ML NEB RESP TX SCH ×6 (03:21→23:35)
[2019-06-23 04:15] LABS: ABG Base Excess 6.2 MMOL/L (-2.5-2.5); ABG HCO3 34.1 MMOL/L (20-26); ABG PO2 51.5 MM HG (80-95); ABG TCO2 36.3 MMOL/L (23-27); Allen Test Positive; Pt O2 Delivery Device Ventilator
[2019-06-23 04:16] LABS: ABG PCO2 70.9 MM HG (35-48)
[2019-06-23 04:28] LABS: Basophils % 0.1 % (0.0-0.8); Eosinophils % 0.1 % (0.00-10.9); Hematocrit 28.7 VOL% (35.7-47.0); Hemoglobin 8.4 GM/DL (12.0-16.0); Immature Granulocytes % 2.5 %; Immature Granulocytes Absolute 0.43 #; Lymphocytes # 1.1 10*3/uL (1.4-4.0); Lymphocytes % 6.3 % (21.3-54.2); Mean Corpuscular HGB Conc 29.3 GM/DL (32-36); Mean Corpuscular Volume 84.4 FL (87-102); Mean Platelet Volume 11.2 FL (9.6-12.0); Monocytes % 9.1 % (1.7-12.7); NRBC # 0.03 10*3/uL; Neutrophils % 81.9 % (38.7-73.9); Platelet Count 302 T/CUMM (130-400); White Blood Count 17.3 T/CUMM (4-12)
[2019-06-23 04:38] LABS: Calcium 9.3 MG/DL (8.5-10.1); Osmolality,Calculated 296.8 MOS/KG (273-304)
[2019-06-23] MEDS: GABAPENTIN 400 MG CAPSULE PO SCH ×3 (08:03→20:52)
[2019-06-23] MEDS: RIVAROXABAN 15 MG TABLET PO SCH ×2 (08:03→16:12)
[2019-06-23] MEDS: RIFAXIMIN 550 MG TABLET PO SCH ×2 (08:03→20:52)
[2019-06-23] MEDS: SERTRALINE 25 MG TABLET PER TUBE SCH (08:03)
[2019-06-23] MEDS: CLOTRIMAZOLE/BETAMETHASONE CREAM 15 GM TUBE TOP SCH ×2 (08:04→20:59)
[2019-06-23] MEDS: LANSOPRAZOLE ODT 30 MG TABLET PER TUBE SCH (08:04)
[2019-06-23 09:29] LABS: ABG Base Excess 4.1 MMOL/L (-2.5-2.5); ABG Oxygen Saturation 88.1 % (95-100); ABG PCO2 66.8 MM HG (35-48); ABG PH 7.291 (7.35-7.45); ABG PO2 56.6 MM HG (80-95); ABG TCO2 30.1 MMOL/L (23-27); Allen Test Positive; Pt O2 Delivery Device Ventilator
[2019-06-23] MEDS: VANCOMYCIN INJ 1,750 MG in SODIUM CHLORIDE 0.9% 500 ML IV SCH (11:11)
[2019-06-24] MEDS: INSULIN LISPRO 100 UNIT/ML SUBCUT SCH ×3 (00:06→11:00)
[2019-06-24] MEDS: MEROPENEM 500 MG in SODIUM CHLORIDE 0.9% 100 ML IV SCH ×3 (00:06→12:20)
[2019-06-24] MEDS: ALBUTEROL/IPRATROPIUM 3 ML NEB RESP TX SCH ×3 (03:46→12:16)
[2019-06-24 04:07] LABS: Basophils % 0.3 % (0.0-0.8); Eosinophils % 0.1 % (0.00-10.9); Hematocrit 28.8 VOL% (35.7-47.0); Hemoglobin 8.6 GM/DL (12.0-16.0); Immature Granulocytes % 4.4 %; Immature Granulocytes Absolute 0.67 #; Lymphocytes # 1.1 10*3/uL (1.4-4.0); Lymphocytes % 7.5 % (21.3-54.2); Mean Corpuscular HGB Conc 29.9 GM/DL (32-36); Mean Corpuscular Volume 83.7 FL (87-102); Mean Platelet Volume 10.8 FL (9.6-12.0); Monocytes % 7.6 % (1.7-12.7); NRBC # 0.06 10*3/uL; Neutrophils % 80.1 % (38.7-73.9); Platelet Count 304 T/CUMM (130-400); Red Blood Count 3.44 MC/CUMM (3.8-5.5); White Blood Count 15.3 T/CUMM (4-12)
[2019-06-24] MEDS: fentaNYL INJ 1,250 MCG in SODIUM CHLORIDE 0.9% 225 ML IV PRN ×2 (04:16→09:35)
[2019-06-24 04:28] LABS: Alanine Aminotransferase 38 U/L (13-56); Albumin 2.2 G/DL (3.4-5.0); Alkaline Phosphatase 101 U/L (45-117); Aspartate Amino Transferase 23 U/L (0-37); Bilirubin,Total < 0.39 MG/DL (0.2-1.0); Blood Urea Nitrogen 42 MG/DL (7-18); Calcium 8.8 MG/DL (8.5-10.1); Estimated Glom Filtration Rate 84 ML/MIN; Glucose 141 MG/DL (74-106); Osmolality,Calculated 291.4 MOS/KG (273-304); Total Protein 6.5 G/DL (6.4-8.3)
[2019-06-24 04:47] LABS: ABG Base Excess 4.3 MMOL/L (-2.5-2.5); ABG HCO3 28.1 MMOL/L (20-26); ABG Oxygen Saturation 86.7 % (95-100); ABG PH 7.265 (7.35-7.45); ABG PO2 56.1 MM HG (80-95); ABG TCO2 31.1 MMOL/L (23-27); Allen Test Positive; Pt O2 Delivery Device Ventilator
[2019-06-24 04:49] LABS: ABG PCO2 72.9 MM HG (35-48)
[2019-06-24] MEDS ORDERED: FUROSEMIDE 40 MG/4 ML VIAL IV ONE (08:03)
[2019-06-24] MEDS: CLOTRIMAZOLE/BETAMETHASONE CREAM 15 GM TUBE TOP SCH (08:10)
[2019-06-24] MEDS: methylPREDNISolone SOD SUC 40 MG/1 ML VIAL IV SCH (08:30)
[2019-06-24] MEDS: LANSOPRAZOLE ODT 30 MG TABLET PER TUBE SCH (08:30)
[2019-06-24] MEDS: GABAPENTIN 400 MG CAPSULE PO SCH (08:30)
[2019-06-24] MEDS: SERTRALINE 25 MG TABLET PER TUBE SCH (08:30)
[2019-06-24] MEDS: RIVAROXABAN 15 MG TABLET PO SCH (08:30)
[2019-06-24] MEDS ORDERED: MORPHINE 4 MG/1 ML VIAL IV PRN (11:08)
[2019-06-24] MEDS: fentaNYL INJ 2,500 MCG in SODIUM CHLORIDE 0.9% 450 ML IV PRN (15:00)
[2019-06-25] MEDS: fentaNYL INJ 2,500 MCG in SODIUM CHLORIDE 0.9% 450 ML IV PRN (04:37)
[2019-06-25] MEDS: MORPHINE 4 MG/1 ML VIAL IV PRN ×5 (08:55→23:02)
[2019-06-25] MEDS ORDERED: fentaNYL 25 MCG/HR PATCH TRANSDERM SCH (09:00)
[2019-06-25 13:38] VITALS: BP 156/81
[2019-06-25] MEDS ORDERED: POLYVINYL ALCOHOL 1.4% OPH SOLN 15 ML BOTTLE BOTH EYES PRN (17:45)
[2019-06-26] MEDS: MORPHINE 4 MG/1 ML VIAL IV PRN ×9 (01:54→23:37)
[2019-06-26] MEDS: LORazepam 2 MG/1 ML VIAL IV PRN ×6 (09:35→23:37)
[2019-06-27] MEDS: MORPHINE 4 MG/1 ML VIAL IV PRN ×3 (05:53→21:55)
[2019-06-27] MEDS: LORazepam 2 MG/1 ML VIAL IV PRN (22:15)
[2019-06-28] MEDS: MORPHINE 4 MG/1 ML VIAL IV PRN (02:51)
[2019-06-28] MEDS: LORazepam 2 MG/1 ML VIAL IV PRN (02:52)
== END 2019-06-28 05:01 | disposition expired ==
LOC: SUATTDRO 06-17 00:52 → N.ICU 06-17 00:52 → N.2E 06-25 13:34
PROVIDERS: ADMIT Internal Medicine; ATTEND Internal Medicine